=== PATIENT | female | born 1955 | race Caucasian/White ===

== ENCOUNTER → 2020-03-21 | Outpatient (CLI) | payer BC ==
--- NOTE | 2020-03-26 14:33 | REP ---
MRI LEFT KNEE HISTORY: Pain. TECHNIQUE: Multiple sequences obtained in the axial, coronal, and sagittal planes. FINDINGS: There appears to be some peripheral fraying along the undersurface of the posterior horn of the medial meniscus. Otherwise, I see no evidence of meniscal tear. The cruciate and collateral ligaments are intact. The extensor mechanism is intact. Medial and lateral patellar retinacula are intact. There is [id number]-ta-fiynsegn chondromalacia of the lateral patellar facet. Otherwise there is mild global chondromalacia elsewhere along the medial patellar facet and in the medial and lateral joint compartments of the knee. There is no abnormal bone marrow signal. There is no bone marrow edema or occult fracture. There is a small joint effusion. There is no popliteal cyst. IMPRESSION: Peripheral fraying along the undersurface of the posterior horn of the medial meniscus. Otherwise no meniscal tear. Cruciate and collateral ligaments intact. Yroa-gg-rmiavudh chondromalacia of the lateral patellar facet. Otherwise mild global chondromalacia. Small joint effusion. MTDD
== END ==
LOC: M RAD 07:25
PROVIDERS: ATTEND Nurse Practitioner Family
DX: M25.562 Pain in left knee (principal)

== ENCOUNTER → 2021-02-14 | Outpatient (CLI) | payer BC ==
--- NOTE | 2021-02-15 06:43 | REP ---
INDICATION: AUB/N93.9/PMB/N95.0 COMPARISON: None. TECHNIQUE: Transabdominal pelvic ultrasound followed using B-mode curved array transducer. FINDINGS: Bladder is unremarkable and measures 9.1 x 7.3 x 7.9 cm. Anteverted uterus measures 8.2 x 3.2 x 5.2 cm. The endometrial complex measures 19 mm thickness. Left ovary not visualized. Right ovary appears normal and measures 2.7 x 2.3 x 2.2 cm. No pelvic fluid or adnexal mass lesion. IMPRESSION: Heterogeneous thickened endometrial complex without discrete focal lesion. <Electronically signed by Leland Peguero > 02/15/21 0639
== END ==
LOC: M WHC 13:12
PROVIDERS: ATTEND Nurse Practitioner Women's Health
DX: N93.9 Abnormal uterine and vaginal bleeding, unspecified (principal); N95.0 Postmenopausal bleeding

== ENCOUNTER → 2021-03-15 | Outpatient (CLI) | payer BC ==
[~2021-03-15] MED LIST: AMBI5TAB PO; GABA600T4 PO
== END ==
LOC: M LABSMTC 11:33
PROVIDERS: ATTEND Anesthesiology
DX: Z01.818 Encounter for other preprocedural examination (principal); Z20.822 Contact with and (suspected) exposure to COVID-19

== ENCOUNTER → 2021-03-15 | Outpatient (CLI) | payer BC ==
--- NOTE | 2021-03-16 11:03 | ECGEPIP ---
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 Electronically Signed on 03-16-2021 11:03:24 EDT by Robin Carvajal
== END ==
LOC: M EKG 11:05
PROVIDERS: ATTEND Anesthesiology
DX: Z01.818 Encounter for other preprocedural examination (principal)

== ENCOUNTER 2021-03-20 09:47 | Day surgery (SDC) | payer BC ==
[~2021-03-20] VITALS: Ht 154.9 cm; Wt 89.4 kg
[~2021-03-20 09:47] MED LIST changes: +LR 1,000 ML IV ONE
[2021-03-20 10:39] LABS: HEMATOCRIT 47.5 % (36.0-47.0); HEMOGLOBIN 15.1 g/dl (12.0-15.5); MEAN CORPUSCULAR HGB CONC 31.8 g/dl (32.0-36.5); MEAN CORPUSCULAR VOLUME 88.1 fl (80.0-96.0); PLATELET COUNT, AUTOMATED 313 10^3/uL (150-450); RED BLOOD COUNT 5.39 10^6/uL (4.00-5.40)
[2021-03-20] MEDS ORDERED: MIDAZOLAM INJ 2MG/2ML VIAL (J2250 PER 1MG) As Ordered ONE (11:42)
[2021-03-20] MEDS ORDERED: fentaNYL 100 MCG/2 ML INJECTION (J3010) As Ordered ONE ×2 (11:43→13:56)
[2021-03-20] MEDS ORDERED: LIDOCAINE 2% 100MG/5ML SDV (FOR ANES.) As Ordered ONE (11:44)
[2021-03-20] MEDS ORDERED: ONDANSETRON 4MG/2ML VIAL As Ordered ONE (12:50)
[2021-03-20] MEDS ORDERED: dexameTHASONE 4 MG/ML 1ML VIAL (J1100 PER 1MG) As Ordered ONE (12:50)
[2021-03-20] MEDS ORDERED: propofoL 200 MG/20 ML VIAL As Ordered ONE (12:50)
[2021-03-20] MEDS ORDERED: KETOROLAC 60MG 2ML VIAL As Ordered ONE (12:51)
--- NOTE | 2021-03-20 14:04 | ROOPDOC ---
[facility] Report Of Operation Report of Operation DATE OF PROCEDURE: 03/20/21 PREPROCEDURE DIAGNOSES: Postmenopausal bleeding. POSTPROCEDURE DIAGNOSES: Endometrial/endocervical mass (polypoid). PROCEDURE PERFORMED: Hysteroscopy D&C, endocervical/endometrial polypectomy, MyoSure morcellation of endometrial mass. SURGEON: Afshin Pozo DO FACOG ANESTHESIA: General LMA. ESTIMATED BLOOD LOSS: Approximately 10 mL. COMPLICATIONS: none. REMARKS: Hysteroscopic fluid deficit of normal saline was 200 mL. FINDINGS: 1. Vulvovaginal atrophy 2. Atrophic cervix with a protruding polypoid mass extending into the endometrium; subsequent hysteroscopy after removal of this mass revealed residual polypoid-like mass within the endometrium (possibly the stalk of the original mass that was visualized prior to hysteroscopy). The background/surrounding endometrial lining appeared pale, yet irregularly contoured with dilated vessels. The endometrial lining of the cavity did not have the typical atrophic postmenopausal appearance. The irregular surface did not display any evidence of friability. Lending Manager images were taken. SPECIMENS: 1. Endometrial/endocervical polypoid mass 2. Morcellated endometrial tissue/mass 3. Endometrial curettings DESCRIPTION OF PROCEDURE: The patient was taken to the operating room with an IV running. She was placed in the dorsal supine position where general anesthesia was administered without any difficulty. The airway was secured. Patient was then placed in the low lithotomy position. She was prepared and draped in the normal sterile fashion. A timeout was performed per protocol. The bladder was drained with an in and out sterile catheter. A sterile speculum was placed with good visualization of the cervix. Protruding through the cervical os was a polypoid mass proximately 2 to 3 cm in greatest dimension. This was grasped with polyp forceps and a twisting/rotational action was performed with light downward traction. The mass was then noted to be amputated and this was sent to pathology for permanent section. The cervix was sequentially dilated with Matthew dilators up to a #15 . The uterus was sounded to 8 cm the hysteroscope was placed transcervically into the intrauterine cavity, with the findings noted above. The MyoSure lite device was used to morcellate the polypoid endometrial mass of tissue. After morcellation, the cavity was cleared of any additional mass. The hysteroscope and MyoSure lite device were removed. A sharp curettage was performed throughout the intrauterine cavity. The tissue obtained was sent for permanent section. The hysteroscope was placed transcervically into the intrauterine cavity for a final inspection. No additional endometrial mass was noted but please refer to the findings noted above. Excellent hemostasis was noted. The hysteroscope was removed. Minimal bleeding from the cervical os was noted. The tenaculum sites were hemostatic . All instruments were removed from the vagina. Sponge, n eedle, and instrument counts were correct per protocol. She tolerated the entire procedure very well. The patient was transferred to the PACU in good and stable condition. DO NATASHA Solano JONATHAN R. DO Mar 20, 2021 14:04
[2021-03-20] MEDS ORDERED: oxyCODONE 5MG TAB PO PRN (14:05)
[2021-03-20] MEDS ORDERED: LR 1,000 ML IV SCH ×2 (14:05)
[2021-03-20] MEDS ORDERED: ONDANSETRON 4MG/2ML VIAL IV PRN (14:05)
[2021-03-20] MEDS ORDERED: fentaNYL 100 MCG/2 ML INJECTION (J3010) IV PRN (14:05)
[2021-03-20 15:30] VITALS: BP 170/75
== END 2021-03-20 15:35 | disposition home or self-care (01) ==
LOC: M SDC 09:47
PROVIDERS: ATTEND Obstetrics & Gynecology
DX: N84.0 Polyp of corpus uteri (principal); N84.1 Polyp of cervix uteri; N95.8 Other specified menopausal and perimenopausal disorders; N90.5 Atrophy of vulva; N95.2 Postmenopausal atrophic vaginitis; K92.9 Disease of digestive system, unspecified; Z88.1 Allergy status to other antibiotic agents; Z88.3 Allergy status to other anti-infective agents; Z88.0 Allergy status to penicillin; Z88.2 Allergy status to sulfonamides; Z79.899 Other long term (current) drug therapy
CPT/HCPCS: 36415; 58558; 85027; 86850; 86900; 86901; 88304; 88305; J1100; J1885; J2250; J2405; J3010

== ENCOUNTER → 2022-08-22 | Outpatient (REF) | payer BC, MEDICARE ==
[~2022-08-22] MED LIST changes: -LR 1,000 ML IV ONE
== END ==
LOC: M LAB REF 16:18
PROVIDERS: ATTEND Plastic Surgery Surgery of the Hand
DX: I78.1 Nevus, non-neoplastic (principal)

== ENCOUNTER → 2024-10-28 | Outpatient (CLI) | payer BC, MEDICARE ==
[~2024-10-28] MED LIST changes: -AMBI5TAB PO; +GABA-1490 PO; -GABA600T4 PO; +ZOLP-532 PO
== END ==
LOC: M SLEEP HO 10:43
PROVIDERS: ATTEND Family Medicine
DX: G47.10 Hypersomnia, unspecified (principal); R06.83 Snoring